=== PATIENT | male | born 1995 | race Caucasian/White ===

== ENCOUNTER 2016-10-07 00:46 | Emergency (ER) | payer BC ==
[2016-10-07 00:53] VITALS: BP 135/101; PULSE 93; RESP 20; TEMP 98.1; O2SAT 96
--- NOTE | 2016-10-07 01:29 | EDPHY ---
H & P Stated Complaint: chest tighness, SOB Time Seen by Provider: 10/07/16 01:16 HPI/ROS: Chief Complaint: Chest pain, shortness of breath HPI: 20-year-old male began having chest pain shortness of breath about 2 hours ago. Patient states that he is feeling quite anxious at that time. He states he drank a large amount of alcohol in the afternoon. He then took his Adderall and drink some coffee. Started developing some pain in his left upper chest in his pectoralis region. Had some associated shortness of breath. Feeling short time. No cough. Pain resolved about an hour ago. No fevers or chills. No nausea or vomiting. No recent falls or trauma. No recent pre is of immobility. No calf pain or swelling. There is no family history of coronary artery disease. Currently without complaint ROS: 10 point Review of Systems is negative except as noted in the HPI. PMH: Attention deficit hyperactivity disorder, depression Medications: Adderall and diazepam Allergies: No known drug allergies Social History: Positive smoking, positive alcohol, positive marijuana Family History: No family history of coronary artery disease, stroke, blood clots, or diabetes Physical Exam: Gen: Awake, Alert, No Distress HEENT: Nose: no rhinorrhea Eyes: PERRLA, EOMI Mouth: Moist mucosa Neck: Supple, no JVD Chest: nontender, lungs clear to auscultation Heart: S1, S2 normal, no murmur Abd: Soft, non-tender, no guarding Back: no CVA tenderness, no midline tenderness Ext: no edema, non-tender Skin: no rash Neuro: CN II-XII intact, Sensation grossly intact, Strength 5/5 in bilateral upper and lower extremities - Personal History Current Tetanus Diphtheria and Acellular Pertussis (TDAP): Yes - Medical/Surgical History Hx Asthma: Yes Hx Chronic Respiratory Disease: No Hx Diabetes: No Hx Cardiac Disease: No Hx Renal Disease: No Hx Cirrhosis: No Hx Alcoholism: No Hx HIV/AIDS: No Hx Splenectomy or Spleen Trauma: No Other PMH: anxiety, asthma - Social History Smoking Status: Light smoker Constitutional: Initial Vital Signs Temperature (C) 36.7 C 10/07/16 00:51 Heart Rate 93 10/07/16 00:51 Respiratory Rate 20 10/07/16 00:51 Blood Pressure 135/101 H 10/07/16 00:51 O2 Sat (%) 96 10/07/16 00:51 Allergies/Adverse Reactions: No Known Allergies Allergy (Unverified 10/07/16 00:50) Home Medications: Medication Instructions Recorded Adderall 10 MG (*) 10/07/16 DIAZEPAM 10/07/16 Wellbutrin Sr 10/07/16 Medical Decision Making - Diagnostics EKG Interpretation: ECG time 2:23 a.m., sinus rhythm with a rate of 75, normal axis, normal intervals, there is J-point elevation in V2 but no other contiguous leads. There are no reciprocal changes. Consistent with early repolarization pattern. ED Course/Re-evaluation: 20-year-old male with chest pain in his left pectoralis muscle earlier this evening. He has early repolarization but otherwise nothing acute on his ECG. He is pain-free now. No risk factors for coronary disease. He will be discharged with follow up with primary care physician for further care. Departure - Departure Disposition: Home, Routine, Self-Care Clinical Impression: Chest pain Condition: Good Instructions: Chest Pain (ED) Additional Instructions: Follow up with primary care physician in 3-4 days for re-evaluation. Return to the emergency department for increasing pain, shortness of breath, fevers, chills, or any other concerns. Referrals: Elvira Velazquez PA [Primary Care Provider] - As per Instructions
--- NOTE | 2016-10-07 02:25 | CPEKG ---
Heart Rate: 75 RR Interval: 800 P-R Interval: 136 QRSD Interval: 106 QT Interval: 372 QTC Interval: 416 P Ashby: 50 QRS Ashby: 85 T Wave Ashby: 15 EKG Severity - NORMAL ECG - EKG Impression: SINUS RHYTHM EKG Impression: ST ELEV, PROBABLE NORMAL EARLY REPOL PATTERN Electronically Signed By: Shree Chapman 07-Oct-2016 06:52:11
== END 2016-10-07 02:48 | disposition home or self-care (01) ==
DX: R07.9 Chest pain, unspecified (principal); F17.200 Nicotine dependence, unspecified, uncomplicated; J45.909 Unspecified asthma, uncomplicated

== ENCOUNTER 2017-02-09 20:40 | Emergency (ER) | payer BC ==
[2017-02-09 20:58] VITALS: TEMP 97.9
--- NOTE | 2017-02-09 21:29 | CPEKG ---
Heart Rate: 75 RR Interval: 800 P-R Interval: 140 QRSD Interval: 108 QT Interval: 372 QTC Interval: 416 P Gillett: 40 QRS Gillett: 83 T Wave Gillett: -6 EKG Severity - ABNORMAL ECG - EKG Impression: SINUS RHYTHM EKG Impression: PROBABLE LEFT VENTRICULAR HYPERTROPHY EKG Impression: BORDERLINE T ABNORMALITIES, INFERIOR LEADS EKG Impression: ST ELEV, PROBABLE NORMAL EARLY REPOL PATTERN Electronically Signed By: Jose Tatum 09-Feb-2017 23:14:54
--- NOTE | 2017-02-09 21:33 | EDPHY ---
H & P Time Seen by Provider: 02/09/17 20:53 HPI/ROS: Chief complaint. Chest pain HPI. 21-year-old male presents emergency department left-sided chest pain yesterday and today. It begins with some shortness of breath. He has some tightness across both sides of his chest but worse on the left. It removed some to his left shoulder. He smoked wax today. He recently switched prescriptions from Valium to Ativan for moved control. He is not sick without fever or cough. No change with breathing, position, exertion. Similar symptoms previously with panic attacks. His chest is better with massage to the left anterior chest area. No unusual activity years trauma. No unusual leg pain or swelling. He has had similar symptoms previously attributed panic attack. He denies use of cocaine. ROS Constitutional. no fever/chills, no weakness Eyes. no problems with vision ENT. no sore throat, no nasal drainage Cardiovascular. Left chest pain Respiratory. Slight shortness of breath Abdominal. no abdominal pain, no nausea/vomiting, no diarrhea . no problems urinating MS. no calf pain/swelling, no neck/back pain, no joint pain Skin. no rash Lymph. no swollen glands Neuro. no headache, no dizziness, no difficulty walking or with speech Past Medical/Surgical History: Anxiety, asthma Family history mom with hypertension, grandmother with an AK Social History: Single, daily smoker, no alcohol Smoking Status: Light smoker Physical Exam: General Appearance: Alert well-developed male mild distress vital signs stable initial heart rate 103 Eyes: Pupils equal and round no pallor or injection. ENT, Mouth: Mucous membranes are moist. Respiratory: There are no retractions, lungs are clear to auscultation. Cardiovascular: Regular rate and rhythm. Mild tenderness to palpation of the area of the left anterior chest Gastrointestinal: Abdomen is soft and nontender, no masses, bowel sounds normal. Neurological: Awake and alert, sensory and motor exams grossly normal. Skin: Warm and dry, no rashes. Musculoskeletal: Neck is supple nontender. Extremities symmetrical, full range of motion. Psychiatric: Patient is oriented X 3, there is no agitation. Constitutional: Initial Vital Signs Temperature (C) 36.6 C 02/09/17 20:56 Heart Rate 103 H 02/09/17 20:56 Respiratory Rate 18 02/09/17 20:56 Blood Pressure 149/89 H 02/09/17 20:56 O2 Sat (%) 97 02/09/17 20:56 O2 Delivery Mode Room Air Allergies/Adverse Reactions: No Known Allergies Allergy (Unverified 10/07/16 00:50) Home Medications: Medication Instructions Recorded Adderall 10 MG (*) 10/07/16 DIAZEPAM 10/07/16 Wellbutrin Sr 10/07/16 Medical Decision Making - Diagnostics EKG Interpretation: EKG interpreted by me normal sinus rhythm normal interval and axis. LVH by voltage. Early repolarization pattern otherwise no significant ST elevation or depression. No arrhythmia. The rate is 75. No change from previous EKG in September 2016 Imaging Results: Imaging Impressions Chest X-Ray 02/09/17 21:55 Impression: Negative portable chest. Chest x-ray reviewed by me is normal. Procedures: IV normal saline, monitor. Ativan orally. Toradol IV ED Course/Re-evaluation: Re-evaluation 11:15 p.m. patient is feeling much better. His symptoms are relieved. He and I discussed imaging lab EKG results. We discussed treatment plan including criteria for return importance of follow-up further evaluation. He expresses understanding and agreement. Differential Diagnosis: I think this is likely muscular chest wall pain. He is tender to palpation. He is much better after the IV Toradol. I considered acute coronary syndrome, pneumonia, pneumothorax, pulmonary embolus. It is also possible thatlayed - Data Points Laboratory Results: Laboratory Results 02/09/17 22:14 02/09/17 22:14 02/09/17 02/09/17 02/09/17 22:14 22:14 22:14 WBC 12.54 10^3/uL H 10^3/uL (3.80-9.50) RBC 5.77 10^6/uL 10^6/uL (4.40-6.38) Hgb 18.2 g/dL H g/dL (13.7-17.5) Hct 49.6 % % (40.0-51.0) MCV 86.0 fL fL (81.5-99.8) MCH 31.5 pg pg (27.9-34.1) MCHC 36.7 g/dL g/dL (32.4-36.7) RDW 11.8 % % (11.5-15.2) Plt Count 324 10^3/uL 10^3/uL (150-400) MPV 8.7 fL fL (8.7-11.7) Neut % (Auto) 73.2 % % (39.3-74.2) Lymph % (Auto) 16.0 % % (15.0-45.0) [place] % (Auto) 8.2 % % (4.5-13.0) Eos % (Auto) 1.7 % % (0.6-7.6) Baso % (Auto) 0.6 % % (0.3-1.7) Nucleat RBC Rel Count 0.0 % % (0.0-0.2) Absolute Neuts (auto) 9.18 10^3/uL H 10^3/uL (1.70-6.50) Absolute Lymphs (auto) 2.01 10^3/uL 10^3/uL (1.00-3.00) Absolute Monos (auto) 1.03 10^3/uL H 10^3/uL (0.30-0.80) Absolute Eos (auto) 0.21 10^3/uL 10^3/uL (0.03-0.40) Absolute Basos (auto) 0.07 10^3/uL 10^3/uL (0.02-0.10) Absolute Nucleated RBC 0.00 10^3/uL 10^3/uL (0-0.01) Immature Gran % 0.3 % % (0.0-1.1) Immature Gran # 0.04 10^3/uL 10^3/uL (0.00-0.10) D-Dimer < 0.27 ug/mLFEU ug/mLFEU (0.00-0.50) Sodium 138 mEq/L mEq/L (134-144) Potassium 3.8 mEq/L mEq/L (3.5-5.2) Chloride 102 mEq/L mEq/L (97-110) Carbon Dioxide 23 mEq/l mEq/l (22-31) Anion Gap 13 mEq/L mEq/L (8-16) BUN 16 mg/dL mg/dL (7-23) Creatinine 0.8 mg/dL mg/dL (0.7-1.3) Estimated GFR > 60 Glucose 85 mg/dL mg/dL (70-100) Calcium 9.9 mg/dL mg/dL (8.5-10.4) Troponin I < 0.012 ng/mL ng/mL (0.000-0.034) Medications Given: Discontinued Medications Sodium Chloride (Ns) 1,000 mls @ 0 mls/hr IV EDNOW ONE; Wide Open PRN Reason: Protocol Stop: 02/09/17 21:55 Last Admin: 02/09/17 22:15 Dose: 1,000 mls Ketorolac Tromethamine (Toradol) 30 mg IVP EDNOW ONE Stop: 02/09/17 21:58 Last Admin: 02/09/17 22:16 Dose: 30 mg Lorazepam (Ativan) 0.5 mg PO EDNOW ONE Stop: 02/09/17 21:56 Last Admin: 02/09/17 22:20 Dose: 0.5 mg Departure - Departure Disposition: Home, Routine, Self-Care Clinical Impression: Chest wall pain Condition: Good Instructions: Chest Wall Pain (ED) Additional Instructions: Ibuprofen 800 mg every 6 hours as needed for discomfort. Continue regular medications. Return for worsening symptoms. Keep follow-up appointment tomorrow with physical therapy. Re-evaluation in 2-3 days for continuing symptoms Referrals: Elvira Velazquez PA [Primary Care Provider] - 2-3 days, if not improved
[2017-02-09] MEDS ORDERED: NS 1,000 ML IV ONE (21:54)
[2017-02-09] MEDS ORDERED: LORazepam 0.5 MG TAB PO ONE (21:55)
[2017-02-09] MEDS ORDERED: KETOROLAC 30 MG/1 ML SDV IVP ONE (21:57)
[2017-02-09 22:27] LABS: % IMMATURE GRANULYOCYTES 0.3 % (0.0-1.1); ABSOLUTE IMMATURE GRANULOCYTES 0.04 10^3/uL (0.00-0.10); ADD DIFF? NO; ADD MORPH? NO; ADD SCAN? NO; ATYPICAL LYMPHOCYTE FLAG 30 (0-99); FRAGMENT RBC FLAG 0 (0-99); HEMATOCRIT 49.6 % (40.0-51.0); HEMOGLOBIN 18.2 g/dL (13.7-17.5); LEFT SHIFT FLG 0 (0-99); LIPEMIA HEMOLYSIS FLAG 90 (0-99); MEAN CELL HEMOGLOBIN 31.5 pg (27.9-34.1); MEAN CELL HEMOGLOBIN CONCENTR. 36.7 g/dL (32.4-36.7); MEAN PLATELET VOLUME 8.7 fL (8.7-11.7); PLATELET CLUMPS FLAG 0 (0-99); PLATELET COUNT 324 10^3/uL (150-400); RED BLOOD CELL COUNT 5.77 10^6/uL (4.40-6.38); RED CELL DISTRIBUTION WIDTH 11.8 % (11.5-15.2)
[2017-02-09 22:35] LABS: ANION GAP 13 mEq/L (8-16); CALCIUM 9.9 mg/dL (8.5-10.4); CARBON DIOXIDE 23 mEq/l (22-31); CHLORIDE 102 mEq/L (97-110); CREATININE 0.8 mg/dL (0.7-1.3); GLOMERULAR FILTRATION RATE > 60; GLUCOSE 85 mg/dL (70-100); POTASSIUM 3.8 mEq/L (3.5-5.2); SODIUM 138 mEq/L (134-144)
[2017-02-09 22:47] LABS: TROPONIN I < 0.012 ng/mL (0.000-0.034)
[2017-02-09 23:34] VITALS: BP 126/77; PULSE 71; RESP 16; O2SAT 95
== END 2017-02-09 23:33 | disposition home or self-care (01) ==
LOC: EDUNIT#
DX: R07.89 Other chest pain (principal); J45.909 Unspecified asthma, uncomplicated; F17.200 Nicotine dependence, unspecified, uncomplicated; E86.9 Volume depletion, unspecified
CPT/HCPCS: 96374; J1885

== ENCOUNTER 2017-06-21 21:59 | Emergency (ER) | payer BC ==
[2017-06-21 22:05] VITALS: BP 135/77; PULSE 90; RESP 16; TEMP 98.2; O2SAT 96
== END 2017-06-21 22:20 | disposition left against medical advice (07) ==
DX: Z53.21 Procedure and treatment not carried out due to patient leaving prior to being seen by health care provider (principal)

== ENCOUNTER → 2017-09-07 | Outpatient (CLI) | payer BC | LOC: BMCIMAGING 14:03 | PROVIDERS: ATTEND Orthopaedic Surgery Hand Surgery | DX: S52.125D Nondisplaced fracture of head of left radius, subsequent encounter for closed fracture with routine healing (principal) ==